=== PATIENT | female | born 1965 | race Caucasian/White ===

== ENCOUNTER → 2019-09-28 15:30 | Outpatient (CLI) | payer BC | END | disposition home or self-care (01) | LOC: D.MAMMO 09-27 10:00 | PROVIDERS: ATTEND Family Medicine | DX: Z12.31 Encounter for screening mammogram for malignant neoplasm of breast (principal) ==

== ENCOUNTER → 2020-07-26 08:20 | Outpatient (CLI) | payer BC | END | disposition home or self-care (01) | LOC: D.HCCARDIO 08:20 | PROVIDERS: ATTEND Internal Medicine Cardiovascular Disease | DX: I20.9 Angina pectoris, unspecified (principal) ==

== ENCOUNTER 2020-09-10 07:10 | Day surgery (SDC) | payer BC ==
[~2020-09-10] VITALS: Ht 165.1 cm; Wt 79.2 kg
--- NOTE | ~2020-09-10 | HEMODYNAMI ---
PATIENT:YAZMIN ACOSTA MEDICAL RECORD: [id number] : 69 LOCATION:[facility] ADMISSION DATE: 09/10/20 Generatedon:19:18 Patient name: YAZMIN ACOSTA Patient #: [id number] SSN: [id number] : 1965 Date of study: 09/10/2020 Page: Of Hemodynamic Procedure Report Patient Data Patient Demographics Procedure consent was obtained First Name: YAZMIN Gender: Female Last Name: KARLA : 1965 Middle Initial: A Age: 55 year(s) Patient #: [id number] Race: SSN: [id number] Additional ID: [id number] Contact details Address: [address] [place] [address] [place] State: [place] City: [place] Zip code: [address] Past Medical History Performed procedures and imaging results Date Procedure Procedure Results Comments 07/26/2020 Standard exercise Negative stress test Allergies Allergen Reaction Date Comments Reported Other allergy 09/10/2020 CODEINE, KELFEX, DILAUDID Admission Admission Data Admission Date: 09/10/2020 Admission Time: 7:10 Arrival Date: 09/10/2020 Arrival Time: 0:00 Admit Source: Other Insurance Payor: Private health insurance [facility] #: [id number] Height (in.): 65 BSA: 1.87 (m2) Height (cm.): 165.1 BMI: 29.12 (kg/m2) Weight (lbs.): 175 Weight (kg.): 79.38 Lab Results Lab Result Date: 09/10/2020 Lab Result Time: 0:00 Biochemistry Name Units Result Min Max BUN mg/dl 13 --(--*-)-- 7 18 Creatinine mg/dl 0.7 --(*---)-- 0.6 1.3 eGFR ml/min 90 --(*---)-- 90 120 NONAFRICAN CBC Name Units Result Min Max Hematocrit % 41.1 -*(----)-- 42 54 Hemoglobin g/dl 13.7 --(*---)-- 13.5 17.5 Procedure Procedure Types Cath Procedure Diagnostic Procedure [facility] w/Coronaries Sedation Charges Moderate Sedation 25-39 minutes Procedure Description Procedure Date Procedure Date: 09/10/2020 Procedure Start Time: 9:06 Procedure End Time: 9:16 Procedure Staff Name Function Miquel Mcdonald MD Performing Physician Nicole Horan RN Nurse La Black RT Scrub Stephanie Hyatt RT Monitor Procedure Data Cath Procedure Fluoroscopy Diagnostic fluoroscopy Total fluoroscopy Time: 0 time: 0 min min Diagnostic fluoroscopy Total fluoroscopy dose: 424 dose: 424 mGy mGy Contrast Material Contrast Material Type Amount (ml) Isovue 370 45 Entry Location Entry Primary Successful Side Size Upsize Upsize Entry Closure [place] ccessful Closure Location (Fr) 1 (Fr) 2 (Fr) Remarks Device Remarks Radial Right 6 Fr Mechanical artery Short Compression Estimated blood loss: 5 ml Diagnostic catheters Device Type Used For End Catheter Placement DIAGNOSTIC [place] 110cm 5 Procedure Fr catheter ([id number]) Procedure Complications No complications Procedure Medications Medication Administration Route Dosage 0.9% NaCl I.V. 100 ml/hr Lidocaine 2% added to field 20 Oxygen NC 3 l/min Heparin Flush Bag added to field 2 bags (1000units/500ml NS) Radial Cocktail added to field 1 syringe (Verapamil 2mg/Nitro 400mcg/Heparin 1500units) Versed I.V. 1 mg Fentanyl I.V. 50 mcg Versed I.V. 1 mg Fentanyl I.V. 50 mcg Versed I.V. 1 mg Versed I.V. 1 mg Hemodynamics Rest BSA: 1.87 (m2) HGB: 13.7 (g/dl) O2 Consumption: Estimated: 185.36 (ml/min) O2 Co nsumption indexed: Estimated:99.12 (ml/min/m) Heart Rate: 76 (bpm) Pressure Samples Time Site Value (mmHg) Purpose Heart Use Rate(bpm) 9:08 LV 125/-2,19 Snapshot 108 Gradients Valve Time Site Site Mean SEP/DFP Peak To Heart Use 1 2 (mmHg) (sec/min) Peak Rate (mmHg) (bpm) Aortic 9:09 LV AO 100 Snapshots Pre Cath Intra NCS Post Cath Vital Signs Time Heart Resp SPO2 etCO2 NIBP (mmHg) Rhythm Pain Sedation Rate (ipm) (%) (mmHg) Status Level (bpm) 8:33:33 82 17 99 31.4 126/78(103) NSR 0 (11) 10(A) , No pain 8:38:18 75 18 98 32.8 115/79(91) NSR 0 (11) 10(A) , No pain 8:42:21 73 19 97 24.6 107/81(98) NSR 0 (11) 10(A) , No pain 8:46:21 73 17 97 29.1 123/89(103) NSR 0 (11) 10(A) , No pain 8:50:23 76 11 93 44.1 118/96(115) NSR 0 (11) 9(A) , No pain 8:54:25 77 18 93 20.2 124/104(119) NSR 0 (11) 9(A) , No pain 8:58:32 76 14 95 46.3 124/82(108) NSR 0 (11) 9(A) , No pain 9:04:52 79 17 97 50.8 107/83(99) NSR 0 (11) 9(A) , No pain 9:08:55 106 15 95 39.6 114/67(89) NSR 0 (11) 9(A) , No pain 9:13:01 90 16 98 41.1 118/75(90) NSR 0 (11) 10(A) , No pain 9:17:09 77 9 98 41.8 117/74(90) NSR 0 (11) 10(A) , No pain Medications Time Medication Route Dose Verified Delivered Reason Notes E ffectiveness by by 8:33:01 0.9% NaCl I.V. 100 Miquel Miqule used for ml/hr Harry Mcdonald MD procedure 8:33:12 Lidocaine 2% added 20ml Miquel Miquel for local to vial Harry Mcdonald MD anesthetic field 8:33:19 Oxygen NC 3 l/min Miquel Miquel for low 02 Harry Mcdonald MD sats 8:33:28 Heparin Flush added 2 bags Miquel Miquel used for Bag to Harry Mcdonald MD procedure (1000units/500ml field NS) 8:39:15 Radial Cocktail added 1 Miquel Miquel for (Verapamil to syringe Harry Mcdonald MD vasodilation 2mg/Nitro field 400mcg/Heparin 1500units) 8:47:53 Versed I.V. 1 mg Miquel Nicole for sedation Harry Horan RN 8:48:00 Fentanyl I.V. 50 mcg Miquel Nicole for sedation Harry Horan RN 8:54:07 Versed I.V. 1 mg Miquel Nicole for sedation Harry Horan RN 8:54:12 Fentanyl I.V. 50 mcg Miquel Nicole for sedation Harry Horan RN 9:03:36 Versed I.V. 1 mg Miquel Nicole for sedation Harry Horan RN 9:10:56 Versed I.V. 1 mg Miquel Nicole for sedation Harry Horan RN Procedure Log Time Note 7:39:22 Informed consent obtained and on chart 7:39:40 Diagnostic Cath Status : Elective 7:39:56 Arrival Date: 09/10/2020 12:00:00 AM 7:39:57 Admit Source: Other 7:40:02 Insurance Payor : Private health insurance 7:43:48 Patient Height : 65 inches 7:44:02 Patient Weight : 175 lbs 7:44:07 ACC Patient presents with Stable Angina CCS Anginal Class 2--Slight limitation of ordinary activity. 7:44:10 Procedure Status Elective Heart Cath (OP). 7:44:18 H&P Date Dictated: 08/15/2020 Within 30 days and on chart.. 7:44:20 Family in waiting room. 7:44:21 Patient NPO since Midnight. 7:44:42 Patient allergic to Other allergyCODEINE, KELFEX, DILAUDID 7:44:46 Alarms reviewed by R. N. 7:44:47 Sharps counted by scrub and verified by R.N. 7:46:18 Stress Test: yes; normal HAD CHEST PAIN 8:09:34 Lab Result : Hemoglobin 13.7 g/dl 8:09:34 Lab Result : Hematocrit 41.1 % 8:14:09 Time tracking: Regular hours (M-F 7:00 - 5:00) 8:14:13 Plan of Care:Hemodynamics will remain stable., Cardiac rhythm will remain stable., Comfort level will be maintained., Respiratory function will remain adequate., Patient/ family verbilizes understanding of procedure., Procedure tolerated without complication., Recovers from procedure without complications.. 8:23:49 La Wayne RT(R) sent for patient. Start room use. 8:24:14 Lab Result : eGFR NONAFRICAN 90 ml/min 8:24:14 Lab Result : Creatinine 0.7 mg/dl 8:24:14 Lab Result : BUN 13 mg/dl 8:26:51 Patient received from Pre/Post Procedure Room to CCL 2 Alert and oriented. Tansferred to table in Supine position. 8:26:52 Warm blankets applied, and fernanda hugger turned on for patient comfort. 8::53 Correct patient and procedure confirmed by team. 8::53 ECG and BP/O2 sat monitors applied to patient. 8::54 Full Disclosure recording started 8:26:55 Pre-procedure instructions explained to patient. 8:26:56 Pre-op teaching completed and patient verbalized understanding. 8:26:58 Is the patient allergic to Iodine/contrast media? No. 8:27:00 Was the patient premedicated? Yes 8:27:09 Patient diabetic? No. 8:27:10 If diabetic: On Metformin? N/A 8:32:34 Vital chart was started 8:33:01 0.9% NaCl 100 ml/hr I.V. was administered by Miquel Mcdonald MD; used for procedure; Verbal order read back and verified. 8:33:12 Lidocaine 2% 20ml vial added to field was administered by Miquel Mcdonald MD; for local anesthetic; Verbal order read back and verified. 8:33:19 Oxygen 3 l/min NC was administered by Miquel Mcdonald MD; for low 02 sats; Verbal order read back and verified. 8:33:28 Heparin Flush Bag (1000units/500ml NS) 2 bags added to field was administered by Miquel Mcdonald MD; used for procedure; Verbal order read back and verified. 8:37:48 Baseline sample Acquired. 8:37:51 Rhythm: sinus rhythm 8:38:12 Patient not . Patient has had hysterectomy. 8:38:14 ----Pre-sedation anethsthesia assessment.---- 8:38:17 Previous problem with sedation/anesthesia? No ? 8:38:19 Snore? Yes 8:38:20 Sleep apnea? No 8:38:21 Deviated septum? No 8:38:22 Opens mouth fully? Yes 8:38:23 Sticks out tongue? Yes 8:38:25 Airway obstruction? No ? 8:38:28 Dentures? No ? 8:38:32 Pre procedure: right dorsailis pedis pulse 2+ Normal; easily identifiable; not easily obliterated 8:38:35 Modified Endy's test Ulnar < 7 seconds 8:38:38 Patient pain scale 0/10 ?. 8:39:15 Radial Cocktail (Verapamil 2mg/Nitro 400mcg/Heparin 1500units) 1 syringe added to field was administered by Miquel Mcdonald MD; for vasodilation; Verbal order read back and verified. 8:39:34 IV patent on arrival in left antecubital with 0.9% NaCl at [facility]. 8:39:39 Right Radial & Right Groin area was prepped with chlora-prep and draped in sterile fashion 8:39:43 Use device set Radial Dx or PCI 8:39:44 ACIST Syringe (14952) opened to sterile field. 8:39:45 Medline Cath Pack ([id number]) opened to sterile field. 8:39:45 Bag Decanter (2002S) opened to sterile field. 8:39:46 ACIST Hand Control (18398) opened to sterile field. 8:39:47 ACIST Manifold (14225) opened to sterile field. 8:39:48 MBrace Wrist Support ([id number]) opened to sterile field. 8:39:48 NEEDLE Cook 21G 4cm Radial ([id number]) opened to sterile field. 8:39:50 EMERALD Guide Wire (548-698) opened to sterile field. 8:39:50 SHEATH 6FR RAIN ([id number]) opened to sterile field. 8:47:38 --------ALL STOP TIME OUT------ 8:47:40 Final Timeout: patient, procedure, and site verified with staff and physician. All members of the team are in agreement. 8:47:42 Right Radial & Right Groin site verified by team. 8:47:45 Sedation plan: IV Moderate Sedation Medication:Versed, Fentanyl 8:47:45 Fire Safety Assessment: A--An alcohol-based skin anteseptic being used preoperatively., C--Open oxygen or nitrous oxide is being used., D--An ESU, laser, or fiber-optic light is being used. 8:47:47 Physical assessment completed. ASA score P 2 - A patient with mild systemic disease as per Miquel Mcdonald MD. 8:47:50 1) 90+ Normal kidney functon but urine findings or structural abnormalities or genetic trait point to kidney disease. 8:47:52 Maximum allowable contrast dose (3.7 X eGFR X 0.75)250 ml. 8:47:53 Versed 1 mg I.V. was administered by Nicole Horan RN; for sedation; Verbal order read back and verified. 8:48:00 Fentanyl 50 mcg I.V. was administered by Nicole Horan RN; for sedation; Verbal order read back and verified. 8:54:07 Versed 1 mg I.V. was administered by Nicole Horan RN; for sedation; Verbal order read back and verified. 8:54:12 Fentanyl 50 mcg I.V. was administered by Nicole Horan RN; for sedation; Verbal order read back and verified. 9:03:36 Versed 1 mg I.V. was administered by Nicole Horan RN; for sedation; Verbal order read back and verified. 9:05:38 Procedure started. 9:06:57 Local anesthetic to right radial artery with Lidocaine 2% by Miquel Mcdonald MD.INITIAL ACCESS ONLY 9:07:10 A 6 Fr Short sheath was inserted into the Right Radial artery 9:07:43 A DIAGNOSTIC [place] 110cm 5 Fr catheter ([id number]) was advanced over the wire and used for Procedure. 9:08:10 LV gram done using DALEY 9:08:40 LV hemodynamics recorded. 9:08:42 Injector settings: Ml/sec: 5, Volume: 15, 9:08:52 EF : 60 % 9:10:56 Versed 1 mg I.V. was administered by Nicole Horan RN; for sedation; Verbal order read back and verified. 9:11:30 RCA angiography performed. 9:11:32 Injector settings: Ml/sec: 3, Volume: 6, 9:12:01 LCA angiography performed. 9:12:04 Injector settings: Ml/sec: 3, Volume: 6, 9:12:49 ACCDominant side:Left 9:12:55 ZEPHYR REGULAR TR BAND (235846) opened to sterile field. 9:12:57 Catheter removed. 9:13:39 Sheath removed intact; hemostasis achieved with Mechanical Compression to the Right Radial artery. 9:13:44 Procedure ended.(Physican Out) 9:14:10 Fluoroscopy time 00.00 minutes. 9:14:14 Fluoroscopy dose: 424 mGy 9:14:14 Flurop Dose total: 424 9:14:18 Dose Area Product 21285 mGy/cm. 9:14:22 Contrast amount:Isovue 370 45ml. 9:14:28 Maximum allowable dose exceeded? No. 9:14:29 Sharps counted by scrub and verified by R.N. 9:14:32 [place] band inflated with 10cc of air. 9:14:41 Post Procedure Pulses reassessed and unchanged 9:14:44 Post procedure: right dorsailis pedis pulse 2+ Normal; easily identifiable; not easily obliterated. 9:14:47 Post-procedure physical assessment completed. ASA score P 2 - A patient with mild systemic disease as per Miquel Mcdonald MD. 9:14:51 Post procedure rhythm: unchanged. 9:14:57 Estimated blood loss: 5 ml 9:14:58 Post procedure instruction explained to patient.Patient verbalizes understanding. 9:14:59 Patient needs reinforcement of post procedure teaching. 9:15:25 Procedure type changed to Cath procedure, Diagnostic procedure, LHC, LHC w/Coronaries, Sedation Charges, Moderate Sedation 25-39 minutes 9:15:45 Procedure and supply charges have been captured, reviewed, submitted and are correct. 9:15:50 Procedure Complication : No complications 9:15:53 LHC Findings: mild to moderate CAD (<70%) 9:15:56 Operative report dictated upon procedure completion. 9:15:57 See physician's report for complete and final results. 9:16:00 Report given to Pre/Post Procedure Room. 9:16:03 Patient transfered to Pre/Post Procedure Room with Stretcher. 9:16:05 Procedure ended. 9:16:05 Full Disclosure recording stopped 9:16:58 End room use (Document Last) 9:17:20 End room use (Document Last) 9:18:19 End room use (Document Last) 9:18:49 Vital chart was stopped Device Usage Item Name Manufacture Quantity Catalog Hospital Part Current Minima l Lot# / Number Charge Number Stock Stock Serial# Code ACIST Acist 1 85738 [id number] [id number] 20 Syringe Medical (89967) Systems Inc Medline Medline 1 [id number] 219261 01305 043783 5 Cath Pack ([id number]) Bag Microtek 1 2001S 375154 08165 784844 5 Decanter Medical Inc. () ACIST Hand Acist 1 68120 838178 925956 018110 5 Control Medical (15571) Systems Inc ACIST Acist 1 35246 788389 627784 152148 5 Manifold Medical (94505) Systems Inc MBrace Advanced 1 140-0250-00 801691 31746 751950 5 Wrist Vascular Support Dynamics ([id number]) NEEDLE Kang Hui Medical Instrument Medical 1 V25099 359742 772879 225447 5 21G 4cm Radial (J82845) EMERALD Cardinal 1 502-903 076182 911191 096723 5 Guide Wire Health (225-430) SHEATH 6FR Cardinal 1 1418301 581944 0736929 491989 5 [facility] (1803950) DIAGNOSTIC Terumo 1 03-5211 244775 861353 919869 5 [place] 110cm 5 Fr catheter (247230) ZEPHYR Cardinal 1 991559 707684 2665775 909354 5 REGULAR TR Health BAND (077259) Signature Audit [place] Stage Time Signature Unsigned Intra-Procedure 09/10/2020 Stephanie Hyatt 9:17:20 AM RT(R) Intra-Procedure 09/10/2020 Nicole 9:18:19 AM Aung NINA Intra-Procedure 09/10/2020 Miquel Mcdonald MD 9:18:47 AM Signatures Performing Physician : Signature : Miquel Mcdonald MD Date : Time : Nurse : Nicole Signature : Aung NINA Date : Time : Monitor : Stephanie Young Signature : RT Date : Time : [address] [place] [address]
[2020-09-10] MEDS ORDERED: LEVOTHYROXINE200 MCG PO (07:34)
[2020-09-10] MEDS ORDERED: CELEXA10 MG PO (07:34)
[2020-09-10 08:00] VITALS: BP 112/87; Ht 165.1 cm; Wt 79.2 kg
[2020-09-10 08:04] LABS: BASOPHILS 1.2 % (0-2); EOSINOPHILS 2.9 % (0-7); HEMATOCRIT 41.1 % (36.0-48.0); HEMOGLOBIN 13.7 g/dL (12-16); LYMPHOCYTES 41.9 % (15-50); MCH 29.7 pg (26.0-34.0); MCHC 33.4 g/dL (31.0-37.0); MCV 88.9 fL (80.0-100.0); MEAN PLATELET VOLUME 7.9 fL (7.4-10.4); PLATELET COUNT 276 10x3/uL (130-400); RBC 4.62 10x6/uL (4.00-5.40); RDW 13.4 % (11.5-14.5); WBC 4.3 10x3/uL (4.8-10.8)
[2020-09-10 08:18] LABS: ALT (SGPT) 40 U/L (10-68); CALC OSMOLALITY 278 mosm/kg (275-300); CALCIUM 9.6 mg/dL (8.5-10.1); CARBON DIOXIDE 25.3 mmol/L (21.0-32.0); CHLORIDE - SERUM 106 mmol/L (98-107); CHOL - HDL RATIO 2.5 ratio (2.3-4.1); CHOLESTEROL, TOTAL 245 mg/dL (0-200); CREATININE - SERUM 0.7 mg/dL (0.6-1.3); GLUCOSE 97 mg/dL (74-106); HDL CHOLESTEROL 99 mg/dL (32-96); LDL CHOLESTEROL 128 mg/dL (0-100); LDL-HDL RATIO 1.3 ratio (1.5-3.5); SODIUM 140 mmol/L (136-145); TRIGLYCERIDE 90 mg/dL (30-200); UREA NITROGEN 13 mg/dL (7-18); eGFR NON AFRICAN AMERICAN > 90 mL/min (90-120)
--- NOTE | 2020-09-10 09:23 | NUR ---
PT ARRIVED BY STRETCHER. PLACED ON MONITORS. ASSESSMENT COMPLETED. VSS AT THIS TIME. CALL LIGHT WITHIN REACH. FAMILY AT BEDSIDE.
--- NOTE | 2020-09-10 09:38 | NUR ---
RIGHT WRIST Z BAND IN PLACE NO BLEEDING/HEMATOMA NOTED. PT DENIES NAUSEA. SET UP WITH WATER AND COFFEE AT THIS TIME. FAMILY AT BEDSIDE. VSS.
--- NOTE | 2020-09-10 10:08 | NUR ---
RIGHT WRIST Z BAND IN PLACE. NO BLEEDING/HEMATOMA NOTED. VSS AT THIS. CALL LIGHT WITHIN REACH.
--- NOTE | 2020-09-10 10:30 | NUR ---
2cc OF AIR REMOVED FROM Z BAND. NO BLEEDING/HEMATOMA NOTED. CALL LIGHT WITHIN REACH. VSS AT THIS TIME. PT EATING CRACKERS AND DENIES NAUSEA/PAIN.
--- NOTE | 2020-09-10 10:45 | NUR ---
3cc OF AIR REMOVED FROM Z BAND. NO BLEEDING/HEMATOMA NOTED. CALL LIGHT WITHIN REACH. VSS AT THIS TIME. PT RESTING COMFORTABLY.
--- NOTE | 2020-09-10 11:00 | NUR ---
5cc OF AIR REMOVED FROM Z BAND. NO BLEEDING/HEMATOMA NOTED. CALL LIGHT WITHIN REACH. PT RESTING COMFORTABLY.
--- NOTE | 2020-09-10 11:15 | NUR ---
Z BAND REMOVED AND DRESSING APPLIED. NO BLEEDING/HEMATOMA NOTED. PIV D/C'D WITH CATH TIP INTACT. TOLERATED WELL. PT INSTRUCTED TO GET UP AND DRESSED AT THIS TIME. FAMILY AT BEDSIDE. NO ASSISTANCE NEEDED.
--- NOTE | 2020-09-10 11:30 | NUR ---
PT AMBULATED TO RESTROOM. VOIDED WITHOUT DIFFICULTY. STEADY GAIT NOTED.
--- NOTE | 2020-09-10 11:35 | NUR ---
DISCUSSED DISCHARGE INSTRUCTIONS WITH PT AND PT'S FAMILY. THEY VOICED UNDERSTANDING.
--- NOTE | 2020-09-10 11:40 | NUR ---
PT TAKEN OUT TO VEHICLE BY WHEELCHAIR. NO S/S OF DISTRESS NOTED. ALL BELONGINGS AND PAPERWORK IN HAND. RIGHT WRIST DRESSING C/D/I. NO S/S OF HEMATOMA NOTED.
== END 2020-09-10 11:40 | disposition home or self-care (01) ==
LOC: D.CATH 07:10
PROVIDERS: ATTEND Internal Medicine Cardiovascular Disease
DX: I20.0 Unstable angina (principal); R00.2 Palpitations; R07.9 Chest pain, unspecified